=== PATIENT | female | born 1985 | race Caucasian/White ===

== ENCOUNTER 2018-06-15 16:13 | Emergency (ER) | payer OTHER ==
[~2018-06-15] VITALS: Ht 160 cm; Wt 54.4 kg
[~2018-06-15 16:13] MED LIST: CODE1TAB37 PO; MILK OF MA400 MG/5 M PO; MOTRIN800 MG PO; Mylicon 125MG PO
== END 2018-06-15 18:54 | disposition home or self-care (01) ==
LOC: ER 16:13
DX: M54.2 Cervicalgia (principal); F41.8 Other specified anxiety disorders

== ENCOUNTER 2019-08-07 11:01 | Emergency (ER) | payer OTHER ==
[~2019-08-07] VITALS: Ht 160 cm; Wt 55.8 kg
== END 2019-08-07 20:06 | disposition home or self-care (01) ==
LOC: ER 11:01
DX: R10.32 Left lower quadrant pain (principal)

== ENCOUNTER 2022-11-29 05:29 | Day surgery (SDC) | payer OTHER | END 2022-11-29 20:00 | disposition home or self-care (01) | LOC: CIR.AMB 05:29 | PROVIDERS: ATTEND Obstetrics & Gynecology | DX: N93.8 Other specified abnormal uterine and vaginal bleeding (principal); N84.0 Polyp of corpus uteri; D25.0 Submucous leiomyoma of uterus; Z20.822 Contact with and (suspected) exposure to COVID-19; I10 Essential (primary) hypertension; Z86.16 Personal history of COVID-19 ==